=== PATIENT | male | born 1935 | race Caucasian/White ===

== ENCOUNTER 2018-12-16 16:50 | Emergency (ER) | payer MEDICARE, OTHER | END 2018-12-16 17:57 | disposition home or self-care (01) | LOC: BURERS 16:50 | DX: K59.00 Constipation, unspecified (principal); E78.00 Pure hypercholesterolemia, unspecified; Z79.899 Other long term (current) drug therapy | CPT/HCPCS: 99283 ==

== ENCOUNTER 2020-08-07 20:53 | Emergency (ER) | payer OTHER, MEDICARE ==
[2020-08-07] MEDS ORDERED: Ketorolac Tromethamine 60 MG/2 ML VIAL ONE (21:13)
== END 2020-08-07 22:33 | disposition home or self-care (01) ==
LOC: BURERS 20:53
DX: S22.31XA Fracture of one rib, right side, initial encounter for closed fracture (principal); E78.00 Pure hypercholesterolemia, unspecified; I10 Essential (primary) hypertension; W01.198A Fall on same level from slipping, tripping and stumbling with subsequent striking against other object, initial encounter
CPT/HCPCS: 72072; 96372; J1885

== ENCOUNTER 2022-02-27 13:36 | Outpatient (CLI) | payer MEDICARE | END 2022-02-27 13:37 | disposition home or self-care (01) | LOC: BUR/OP 13:36 | PROVIDERS: ATTEND Family Medicine | DX: M79.671 Pain in right foot (principal) ==

== ENCOUNTER 2022-07-16 12:03 | Emergency (ER) | payer MEDICARE ==
[2022-07-16 12:29] LABS: #Eosinphils 0.3 thou/uL (0.0-0.7); #Lymphocytes 1.2 thou/uL (1.20-3.40); #Monocytes 0.6 thou/uL (0.11-0.59); #Neutrophils 4.6 thou/uL (1.40-6.50); %Basophils 0.5 % (0.0-1.0); %Eosinophils 4.1 % (0.0-10.0); %Lymphocytes 18.1 % (21.0-51.0); %Monocytes 8.9 % (0.0-10.0); %Neutrophils 68.4 % (42.0-75.0); Hemoglobin 10.1 g/dL (14.0-18.0); Mean Corpuscular HGB CONC 33.9 g/dL (32.0-36.0); Mean Corpuscular Volume 94.4 fl (78.0-98.0); Mean Platelet Volume 7.6 fL (7.4-10.4); Platelet Count 154 10x3/uL (130-400); RBC Distribution Width 13.4 % (11.5-14.5); Red Blood Cell (RBC) Count 3.17 mill/uL (4.70-6.10); White Blood Cell (WBC) Count 6.7 10x3/uL (4.8-10.8)
[2022-07-16 12:46] LABS: ALT (SGPT) 26 U/L (8-55); AST (SGOT) 32 U/L (5-34); Albumin 3.8 g/dL (3.4-4.8); Alkaline Phosphatase 59 U/L (40-110); Anion Gap 15 mmol/L (10-20); BUN (Urea Nitrogen) 33 mg/dL (8.4-25.7); Bilirubin, Total 1.5 mg/dL (0.2-1.2); Calc. Creatinine Clearance 0 mL/min (70-130); Calcium 9.4 mg/dL (7.8-10.44); Carbon Dioxide 24 mmol/L (23-31); Chloride 106 mmol/L (98-107); Estimated GFR 38; Globulin 2.5 g/dL (2.4-3.5); Glucose 129 mg/dL (83-110); Magnesium 1.7 mg/dL (1.6-2.6); Potassium 4.1 mmol/L (3.5-5.1); Protein, Total 6.3 g/dL (5.8-8.1); Sodium 141 mmol/L (136-145)
[2022-07-16] MEDS ORDERED: Aspirin 325 MG TAB ONE (13:02)
[2022-07-16 13:08] LABS: CKMB 23.1 ng/mL (0-6.6)
[2022-07-16 13:19] LABS: Troponin I 10.292 ng/mL (< 0.028)
[2022-07-16] MEDS ORDERED: Heparin 25,000 units/D5W 500 ML ONE (13:30)
[2022-07-16] MEDS ORDERED: Heparin 10,000 UNITS/ 10 ML VIAL ONE (13:31)
[2022-07-16 13:49] LABS: INR-International Normal Ratio 1.2; Prothrombin Time 15.2 sec (12.0-14.7)
[2022-07-16 13:50] LABS: PTT 38.7 sec (22.9-36.1)
== END 2022-07-16 14:10 | disposition short-term general hospital (02) ==
LOC: BURERS 12:03
DX: I24.9 Acute ischemic heart disease, unspecified (principal); I10 Essential (primary) hypertension; E78.00 Pure hypercholesterolemia, unspecified
CPT/HCPCS: 36415; 71046; 80053; 82553; 83605; 83735; 83880; 84484; 85025; 85610; 85730; 87804; 87807; 93005; 96374; J1644